=== PATIENT | female | born 1960 | race Caucasian/White ===

== ENCOUNTER 2020-12-29 05:46 | Day surgery (SDC) | payer MEDICARE ==
[2020-12-28 12:15] VITALS: BMI 23.5
[2020-12-29] MEDS ORDERED: AFRIN NASAL MIST 15 ML BOT ONE ×2 (06:31→06:37)
[2020-12-29] MEDS ORDERED: Lidocaine 1% w/Epinephrine 1:100K 30 ML VIAL ONE (06:37)
[2020-12-29] MEDS ORDERED: Fentanyl 100 MCG/2 ML VIAL ONE ×3 (06:39→08:44)
[2020-12-29] MEDS ORDERED: Propofol 1,000 MG/100 ML VIAL IV ONE (07:29)
[2020-12-29] MEDS ORDERED: Midazolam HCl 2 mg/2 ml Vial ONE (07:41)
[2020-12-29] MEDS ORDERED: Glycopyrrolate 0.2 MG/ML 5 ML SYRINGE ONE (07:50)
[2020-12-29] MEDS ORDERED: Dexamethasone 20 MG/5 ML VIAL ONE (07:50)
[2020-12-29] MEDS ORDERED: Ondansetron PF 4 MG/2 ML Vial ONE (07:50)
[2020-12-29] MEDS ORDERED: Rocuronium Bromide 10 MG/ML (10ML VIAL) ONE (07:50)
[2020-12-29] MEDS ORDERED: PROPOFOL 200 MG/20 ML VIAL ONE (07:50)
[2020-12-29] MEDS ORDERED: HYDROcodone/Acetaminophen 5/325 mg Tablet ONE (09:39)
[2020-12-29] MEDS ORDERED: diphenhydrAMINE 25 MG CAP ONE (09:45)
[2020-12-29] MEDS ORDERED: Acetaminophen 500 MG TAB ONE (09:45)
== END 2020-12-29 10:10 | disposition home or self-care (01) ==
LOC: SDC 05:46
PROVIDERS: ATTEND Otolaryngology Plastic Surgery within the Head & Neck
PROC: 09TL8ZZ Resection of Nasal Turbinate, Via Natural or Artificial Opening Endoscopic (ICD-10-PCS; principal; 2020-12-29)
PROC: 099R8ZZ Drainage of Left Maxillary Sinus, Via Natural or Artificial Opening Endoscopic (ICD-10-PCS; 2020-12-29)
PROC: 09BQ8ZZ Excision of Right Maxillary Sinus, Via Natural or Artificial Opening Endoscopic (ICD-10-PCS; 2020-12-29)
PROC: 099T8ZZ Drainage of Left Frontal Sinus, Via Natural or Artificial Opening Endoscopic (ICD-10-PCS; 2020-12-29)
PROC: 099S8ZZ Drainage of Right Frontal Sinus, Via Natural or Artificial Opening Endoscopic (ICD-10-PCS; 2020-12-29)
PROC: 09TV8ZZ Resection of Left Ethmoid Sinus, Via Natural or Artificial Opening Endoscopic (ICD-10-PCS; 2020-12-29)
PROC: 09TU8ZZ Resection of Right Ethmoid Sinus, Via Natural or Artificial Opening Endoscopic (ICD-10-PCS; 2020-12-29)
DX: J32.4 Chronic pansinusitis (principal); J34.1 Cyst and mucocele of nose and nasal sinus; J34.3 Hypertrophy of nasal turbinates; J34.89 Other specified disorders of nose and nasal sinuses; E78.5 Hyperlipidemia, unspecified; Z87.891 Personal history of nicotine dependence; Z79.82 Long term (current) use of aspirin; Z79.899 Other long term (current) drug therapy
CPT/HCPCS: 85014; 93005; 93010; J1100; J2250; J2405; J2704; J3010; Q0163